=== PATIENT | male | born 1940 ===

== ENCOUNTER 2017-08-21 14:57 | Inpatient (IN) | payer MEDICARE, OTHER ==
[~2017-08-21] VITALS: Ht 188 cm; Wt 104.3 kg
[2017-08-21 16:44] VITALS: BP 123/77
[2017-08-21] MEDS ORDERED: ASPI81TA31 PO (16:44)
[2017-08-21] MEDS ORDERED: CARV25TA2 PO (16:44)
[2017-08-21] MEDS ORDERED: MINO2.5T PO (16:44)
[2017-08-21] MEDS ORDERED: ATOR80TA PO (16:44)
[2017-08-21] MEDS ORDERED: DOCU100C36 PO (16:44)
[2017-08-21] MEDS ORDERED: NIFE60TA69 PO (16:44)
[2017-08-21] MEDS ORDERED: NIFE30TA89 PO (16:44)
[2017-08-21] MEDS ORDERED: VALS80TA2 PO (16:44)
[2017-08-21] MEDS ORDERED: Z GUARD REMEDY PASTE 57 GM TUBE TOP PRN (17:00)
[2017-08-21] MEDS ORDERED: ACETAMINOPHEN 325 MG TABLET PO PRN (19:30)
[2017-08-21] MEDS: ATORVASTATIN 40 MG TABLET PO SCH (21:30)
[2017-08-21] MEDS ORDERED: LORAZEPAM 0.5 MG TABLET PO PRN (21:30)
[2017-08-21 22:07] VITALS: BP 130/82
[2017-08-21] MEDS: OXYCODONE/APAP 5-325 MG TABLET PO PRN (22:15)
[2017-08-22] MEDS: OXYCODONE/APAP 5-325 MG TABLET PO PRN ×2 (02:23→21:41)
[2017-08-22 05:58] VITALS: BP 120/79
[2017-08-22 06:21] LABS: BASOPHILS % (AUTO) 0.5 % (0.0-2.0); EOSINOPHILS # (AUTO) 0.1 K/uL (0.0-0.7); EOSINOPHILS % (AUTO) 2.7 % (0.0-7.0); HEMATOCRIT 42.1 % (36.7-47.1); HEMOGLOBIN 14.1 g/dL (12.5-16.3); LYMPHOCYTES # (AUTO) 0.9 K/uL (20.0-40.0); LYMPHOCYTES % (AUTO) 16.9 % (20.5-51.5); MEAN CORPUSCULAR HEMOGLOBIN 28.9 uug (23.8-33.4); MEAN CORPUSCULAR HGB CONC 33 g/dL (32.5-36.3); MEAN CORPUSCULAR VOLUME 86.5 fL (73.0-96.2); MONOCYTES # (AUTO) 0.8 K/uL (2.0-10.0); MONOCYTES % (AUTO) 14.4 % (0.0-11.0); NEUTROPHILS # (AUTO) 3.4 K/uL (1.8-8.9); NEUTROPHILS % (AUTO) 65.5 % (38.5-71.5); PLATELET COUNT (AUTO) 193 K/uL (152-348); RED BLOOD CELL COUNT(AUTO) 4.87 MIL/uL (4.06-5.63); WHITE BLOOD COUNT (AUTO) 5.2 K/uL (3.6-10.2)
[2017-08-22 06:41] LABS: CARBON DIOXIDE 27 mmol/L (21-32); CHLORIDE 105 mmol/L (98-107); CHOLESTEROL 192 mg/dL (<200); GLUCOSE 98 mg/dL (74-106); HDL CHOLESTEROL 42 mg/dL (40-60); MAGNESIUM 2.2 mg/dL (1.8-2.4); PHOSPHOROUS 3.1 mg/dL (2.5-4.9); POTASSIUM 3.6 mmol/L (3.5-5.1); TRIGLYCERIDES 70 MG/DL (30-150); UREA NITROGEN, BLOOD 23 mg/dL (7-18)
[2017-08-22] MEDS: CARVEDILOL 25 MG TABLET PO SCH ×2 (08:13→17:33)
[2017-08-22] MEDS: DOCUSATE SODIUM 100 MG CAPSULE PO SCH (08:44)
[2017-08-22] MEDS: ASPIRIN 81 MG TAB.CHEW PO SCH (08:44)
[2017-08-22] MEDS ORDERED: Medication Not On Formulary EA (Atorvastatin Calcium (Lipitor) 80 MG) PO SCH (09:00)
[2017-08-22] MEDS: VALSARTAN 80 MG TABLET PO SCH (09:40)
[2017-08-22] MEDS: MINOXIDIL 2.5 MG TABLET PO SCH ×2 (09:40→16:52)
[2017-08-22] MEDS: NIFEdipine XL 30 MG TABSR PO SCH (09:41)
[2017-08-22 19:30] VITALS: BP 114/69
[2017-08-22] MEDS: ATORVASTATIN 40 MG TABLET PO SCH (21:05)
[2017-08-22] MEDS: LORAZEPAM 1 MG TABLET PO PRN (21:08)
[2017-08-23 08:00] VITALS: BP 132/91
[2017-08-23] MEDS: VALSARTAN 80 MG TABLET PO SCH (08:49)
[2017-08-23] MEDS: CARVEDILOL 25 MG TABLET PO SCH ×2 (08:49→17:27)
[2017-08-23] MEDS: NIFEdipine XL 30 MG TABSR PO SCH (08:49)
[2017-08-23] MEDS: DOCUSATE SODIUM 100 MG CAPSULE PO SCH (08:49)
[2017-08-23] MEDS: MINOXIDIL 2.5 MG TABLET PO SCH ×2 (08:50→17:27)
[2017-08-23] MEDS: ASPIRIN 81 MG TAB.CHEW PO SCH (08:50)
[2017-08-23] MEDS: LORAZEPAM 1 MG TABLET PO PRN ×2 (08:55→15:01)
[2017-08-23 17:00] VITALS: BP 130/85
[2017-08-23 20:01] VITALS: BP 112/67
[2017-08-23] MEDS ORDERED: DEXAMETHASONE SOD PHOSPHATE 10 MG INJ IV STA (20:34)
[2017-08-23] MEDS ORDERED: DEXAMETHASONE SOD PHOSPHATE 4 MG INJ IV SCH (20:45)
[2017-08-23] MEDS: ATORVASTATIN 40 MG TABLET PO SCH (20:57)
[2017-08-24] MEDS ORDERED: PANT40TA2 PO (14:58)
[2017-08-24] MEDS ORDERED: PROC25SU3 RC (14:58)
[2017-08-24] MEDS ORDERED: ONDA4TAB5 PO (14:58)
[2017-08-24] MEDS ORDERED: BLOO-697 IN (15:01)
[2017-08-24] MEDS ORDERED: NORM2DIS4 IVF (15:01)
[2017-08-24] MEDS ORDERED: ONDANSETRON HCL 4 MG TABLET PO PRN (15:45)
[2017-08-24] MEDS: BLOOD SUGAR DIAGNOSTIC 1 EACH STRIP VI SCH ×2 (16:53→20:49)
[2017-08-24] MEDS ORDERED: ACETAMINOPHEN 325 MG TABLET PO PRN (17:15)
[2017-08-24] MEDS ORDERED: Z GUARD REMEDY PASTE 57 GM TUBE TOP PRN (17:45)
[2017-08-24 17:56] VITALS: BP 126/77
[2017-08-24] MEDS: CARVEDILOL 25 MG TABLET PO SCH (17:57)
[2017-08-24] MEDS: MINOXIDIL 2.5 MG TABLET PO SCH (17:57)
[2017-08-24 19:37] VITALS: BP 111/73
[2017-08-24] MEDS: ATORVASTATIN 40 MG TABLET PO SCH (20:43)
[2017-08-24] MEDS: OXYCODONE/APAP 5-325 MG TABLET PO PRN (20:44)
[2017-08-24] MEDS ORDERED: ZOLPIDEM 5 MG TABLET PO ONE (23:15)
[2017-08-25 05:12] VITALS: BP 127/68
[2017-08-25] MEDS: BLOOD SUGAR DIAGNOSTIC 1 EACH STRIP VI SCH ×4 (06:31→20:49)
[2017-08-25 08:00] VITALS: BP 127/58
[2017-08-25] MEDS: CARVEDILOL 25 MG TABLET PO SCH ×2 (08:45→17:42)
[2017-08-25] MEDS: VALSARTAN 80 MG TABLET PO SCH (08:46)
[2017-08-25] MEDS: ASPIRIN 81 MG TAB.CHEW PO SCH (08:46)
[2017-08-25] MEDS: PANTOPRAZOLE SODIUM 40 MG TABLET.DR PO SCH (08:46)
[2017-08-25] MEDS: NIFEdipine XL 30 MG TABSR PO SCH (08:46)
[2017-08-25] MEDS: MINOXIDIL 2.5 MG TABLET PO SCH ×2 (08:47→17:40)
[2017-08-25] MEDS: DOCUSATE SODIUM 100 MG CAPSULE PO SCH (08:47)
[2017-08-25 16:40] VITALS: BP 114/67
[2017-08-25] MEDS ORDERED: BISACODYL 5 MG TABLET.DR PO PRN (17:30)
[2017-08-25 19:22] VITALS: BP 104/54
[2017-08-25] MEDS: ATORVASTATIN 40 MG TABLET PO SCH (20:39)
[2017-08-25] MEDS: OXYCODONE/APAP 5-325 MG TABLET PO PRN (20:42)
[2017-08-26] MEDS: OXYCODONE/APAP 5-325 MG TABLET PO PRN ×2 (02:32→21:53)
[2017-08-26] MEDS: BLOOD SUGAR DIAGNOSTIC 1 EACH STRIP VI SCH ×4 (06:29→21:52)
[2017-08-26 06:53] VITALS: BP 132/87
[2017-08-26 08:00] VITALS: BP 121/78
[2017-08-26] MEDS: MINOXIDIL 2.5 MG TABLET PO SCH ×2 (09:37→17:51)
[2017-08-26] MEDS: CARVEDILOL 25 MG TABLET PO SCH ×2 (09:37→17:52)
[2017-08-26] MEDS: PANTOPRAZOLE SODIUM 40 MG TABLET.DR PO SCH (09:37)
[2017-08-26] MEDS: VALSARTAN 80 MG TABLET PO SCH (09:37)
[2017-08-26] MEDS: DOCUSATE SODIUM 100 MG CAPSULE PO SCH (09:37)
[2017-08-26] MEDS: ASPIRIN 81 MG TAB.CHEW PO SCH (09:37)
[2017-08-26] MEDS: NIFEdipine XL 30 MG TABSR PO SCH (09:38)
[2017-08-26] MEDS ORDERED: MAGNESIUM HYDROXIDE 30 ML LIQUID UDC PO PRN (11:45)
[2017-08-26] MEDS ORDERED: BISACODYL 10 MG SUPP.RECT RC ONE (13:15)
[2017-08-26] MEDS ORDERED: LACTULOSE 20 G/30 ML LIQUID UDC PO ONE ×2 (13:15→13:45)
[2017-08-26 16:00] VITALS: BP 100/65
[2017-08-26 19:30] VITALS: BP 118/72
[2017-08-26] MEDS: ATORVASTATIN 40 MG TABLET PO SCH (21:52)
[2017-08-26] MEDS: ZOLPIDEM 5 MG TABLET PO PRN (21:53)
[2017-08-27 04:00] VITALS: BP 131/79
[2017-08-27] MEDS: BLOOD SUGAR DIAGNOSTIC 1 EACH STRIP VI SCH ×4 (06:34→21:49)
[2017-08-27 08:00] VITALS: BP 126/80
[2017-08-27] MEDS: NIFEdipine XL 30 MG TABSR PO SCH (10:19)
[2017-08-27] MEDS: MINOXIDIL 2.5 MG TABLET PO SCH ×2 (10:20→17:00)
[2017-08-27] MEDS: DOCUSATE SODIUM 100 MG CAPSULE PO SCH (10:20)
[2017-08-27] MEDS: ASPIRIN 81 MG TAB.CHEW PO SCH (10:20)
[2017-08-27] MEDS: CARVEDILOL 25 MG TABLET PO SCH ×2 (10:20→17:06)
[2017-08-27] MEDS: VALSARTAN 80 MG TABLET PO SCH (10:20)
[2017-08-27] MEDS: PANTOPRAZOLE SODIUM 40 MG TABLET.DR PO SCH (10:21)
[2017-08-27 16:00] VITALS: BP 107/66
[2017-08-27 19:53] VITALS: BP 118/77
[2017-08-27] MEDS: TRAZODONE 50 MG TABLET PO SCH (21:48)
[2017-08-27] MEDS: OXYCODONE/APAP 5-325 MG TABLET PO PRN (21:59)
[2017-08-27] MEDS: ZOLPIDEM 5 MG TABLET PO PRN (22:00)
[2017-08-27] MEDS ORDERED: ATORVASTATIN 40 MG TABLET ONE (22:20)
[2017-08-27] MEDS: ATORVASTATIN 40 MG TABLET PO SCH (22:21)
[2017-08-28 05:00] VITALS: BP 120/82
[2017-08-28] MEDS: BLOOD SUGAR DIAGNOSTIC 1 EACH STRIP VI SCH ×4 (06:39→21:00)
[2017-08-28 08:00] VITALS: BP 127/87
[2017-08-28] MEDS: DOCUSATE SODIUM 100 MG CAPSULE PO SCH (08:33)
[2017-08-28] MEDS: PANTOPRAZOLE SODIUM 40 MG TABLET.DR PO SCH (08:33)
[2017-08-28] MEDS: ASPIRIN 81 MG TAB.CHEW PO SCH (08:33)
[2017-08-28] MEDS: NIFEdipine XL 30 MG TABSR PO SCH (08:33)
[2017-08-28] MEDS: VALSARTAN 80 MG TABLET PO SCH (08:34)
[2017-08-28] MEDS: CARVEDILOL 25 MG TABLET PO SCH ×2 (08:34→18:00)
[2017-08-28] MEDS: MINOXIDIL 2.5 MG TABLET PO SCH ×2 (08:34→16:37)
[2017-08-28 15:32] VITALS: BP 107/65
[2017-08-28] MEDS: TRAZODONE 50 MG TABLET PO SCH (20:34)
[2017-08-28] MEDS: ZOLPIDEM 5 MG TABLET PO PRN (20:34)
[2017-08-28 20:48] VITALS: BP 124/74
[2017-08-28] MEDS: ATORVASTATIN 40 MG TABLET PO SCH (21:00)
[2017-08-28] MEDS: OXYCODONE/APAP 5-325 MG TABLET PO PRN (22:54)
[2017-08-29 06:22] VITALS: BP 126/84
[2017-08-29 07:30] VITALS: BP 133/81
[2017-08-29] MEDS: BLOOD SUGAR DIAGNOSTIC 1 EACH STRIP VI SCH (07:30)
[2017-08-29] MEDS: CARVEDILOL 25 MG TABLET PO SCH (08:00)
[2017-08-29] MEDS: DOCUSATE SODIUM 100 MG CAPSULE PO SCH (08:48)
[2017-08-29] MEDS: PANTOPRAZOLE SODIUM 40 MG TABLET.DR PO SCH (08:49)
[2017-08-29] MEDS: ASPIRIN 81 MG TAB.CHEW PO SCH (08:53)
[2017-08-29] MEDS: VALSARTAN 80 MG TABLET PO SCH (08:56)
[2017-08-29 09:00] VITALS: BP 133/81
[2017-08-29] MEDS: MINOXIDIL 2.5 MG TABLET PO SCH (09:00)
[2017-08-29] MEDS: NIFEdipine XL 30 MG TABSR PO SCH (09:00)
== END 2017-08-29 10:15 | disposition left against medical advice (07) | DRG 57 ==
LOC: UNDODISIN 08-23 21:45
PROVIDERS: ADMIT Physical Medicine & Rehabilitation Pain Medicine; ATTEND Physical Medicine & Rehabilitation Pain Medicine
DX: I69.234 Monoplegia of upper limb following other nontraumatic intracranial hemorrhage affecting left non-dominant side (principal); I50.32 Chronic diastolic (congestive) heart failure; E03.9 Hypothyroidism, unspecified; H57.11 Ocular pain, right eye; E78.5 Hyperlipidemia, unspecified; F41.1 Generalized anxiety disorder; I11.0 Hypertensive heart disease with heart failure; I25.10 Atherosclerotic heart disease of native coronary artery without angina pectoris; I25.2 Old myocardial infarction; I48.91 Unspecified atrial fibrillation; J44.9 Chronic obstructive pulmonary disease, unspecified; R45.87 Impulsiveness; G47.00 Insomnia, unspecified
CPT/HCPCS: 36415; 70030-TC; 70450; 83735; 84100; 85025; 92507; 92523; 92526; 92610; 97110; 97112; 97116; 97530; 97535; A4217; A4663

== ENCOUNTER 2017-08-23 21:54 | Inpatient (IN) | payer MEDICARE, OTHER ==
[~2017-08-23] VITALS: Ht 188 cm; Wt 106.6 kg
[2017-08-23 21:50] VITALS: BP 134/104
[~2017-08-23 21:54] MED LIST: ASPI81TA31 PO; ATOR80TA PO; CARV25TA2 PO; DOCU100C36 PO; MINO2.5T PO; NIFE30TA89 PO; VALS80TA2 PO
[2017-08-23 22:00] VITALS: BP 103/62
[2017-08-23] MEDS ORDERED: PROCHLORPERAZINE MALEATE 25 MG SUPP.RECT RC PRN (22:00)
[2017-08-23] MEDS ORDERED: ONDANSETRON 4 MG/2 ML VIAL IV PRN (22:00)
[2017-08-23 22:30] VITALS: BP 124/57
[2017-08-23 23:00] VITALS: BP 127/62
[2017-08-23 23:03] LABS: BASOPHILS % (AUTO) 0.7 % (0.0-2.0); EOSINOPHILS # (AUTO) 0.1 K/uL (0.0-0.7); EOSINOPHILS % (AUTO) 1.7 % (0.0-7.0); HEMATOCRIT 44.1 % (36.7-47.1); HEMOGLOBIN 14.9 g/dL (12.5-16.3); LYMPHOCYTES # (AUTO) 0.8 K/uL (20.0-40.0); LYMPHOCYTES % (AUTO) 13.3 % (20.5-51.5); MEAN CORPUSCULAR HEMOGLOBIN 29.3 uug (23.8-33.4); MEAN CORPUSCULAR HGB CONC 34 g/dL (32.5-36.3); MEAN CORPUSCULAR VOLUME 86.7 fL (73.0-96.2); MONOCYTES # (AUTO) 0.7 K/uL (2.0-10.0); MONOCYTES % (AUTO) 11.7 % (0.0-11.0); NEUTROPHILS # (AUTO) 4.3 K/uL (1.8-8.9); NEUTROPHILS % (AUTO) 72.6 % (38.5-71.5); PLATELET COUNT (AUTO) 208 K/uL (152-348); RED BLOOD CELL COUNT(AUTO) 5.09 MIL/uL (4.06-5.63)
[2017-08-23] MEDS ORDERED: NORMAL SALINE FLUSH 10 ML DISP.SYRIN IV PRN (23:15)
[2017-08-23 23:30] VITALS: BP 131/63
[2017-08-23 23:36] LABS: CARBON DIOXIDE 27 mmol/L (21-32); CHLORIDE 104 mmol/L (98-107); CREATININE 1.2 mg/dL (0.6-1.3); GLUCOSE 98 mg/dL (74-106); MAGNESIUM 2.6 mg/dL (1.8-2.4); PHOSPHOROUS 3.6 mg/dL (2.5-4.9); POTASSIUM 3.4 mmol/L (3.5-5.1); UREA NITROGEN, BLOOD 28 mg/dL (7-18)
[2017-08-24] VITALS (13 sets, daily range): BP systolic 109–145; BP diastolic 63–92
[2017-08-24] MEDS ORDERED: BLOOD SUGAR DIAGNOSTIC 1 EACH STRIP VI SCH
[2017-08-24] MEDS ORDERED: ZOLPIDEM 5 MG TABLET PO ONE (00:45)
[2017-08-24] MEDS ORDERED: NORMAL SALINE FLUSH 10 ML DISP.SYRIN IV SCH (06:00)
[2017-08-24] MEDS: BLOOD SUGAR DIAGNOSTIC 1 EACH STRIP VI SCH ×2 (06:18→12:03)
[2017-08-24 06:33] LABS: BASOPHILS # (AUTO) 0.1 K/uL (0.0-8.0); BASOPHILS % (AUTO) 0.8 % (0.0-2.0); EOSINOPHILS # (AUTO) 0.2 K/uL (0.0-0.7); EOSINOPHILS % (AUTO) 2.1 % (0.0-7.0); HEMATOCRIT 44.1 % (36.7-47.1); HEMOGLOBIN 14.8 g/dL (12.5-16.3); LYMPHOCYTES # (AUTO) 1.2 K/uL (20.0-40.0); LYMPHOCYTES % (AUTO) 16.4 % (20.5-51.5); MEAN CORPUSCULAR HEMOGLOBIN 29.1 uug (23.8-33.4); MEAN CORPUSCULAR HGB CONC 34 g/dL (32.5-36.3); MEAN CORPUSCULAR VOLUME 86.3 fL (73.0-96.2); MONOCYTES # (AUTO) 0.9 K/uL (2.0-10.0); MONOCYTES % (AUTO) 12.7 % (0.0-11.0); PLATELET COUNT (AUTO) 238 K/uL (152-348); RED BLOOD CELL COUNT(AUTO) 5.11 MIL/uL (4.06-5.63); WHITE BLOOD COUNT (AUTO) 7.3 K/uL (3.6-10.2)
[2017-08-24 06:42] LABS: CARBON DIOXIDE 23 mmol/L (21-32); CHLORIDE 105 mmol/L (98-107); GLUCOSE 110 mg/dL (74-106); POTASSIUM 3.7 mmol/L (3.5-5.1); UREA NITROGEN, BLOOD 27 mg/dL (7-18)
[2017-08-24 06:44] LABS: *BLOOD, URINE NEGATIVE (NEGATIVE); *CLARITY,URINE CLEAR (CLEAR); *COLOR,URINE YELLOW (YELLOW); *KETONES,URINE NEGATIVE (NEGATIVE); *PROTEIN,URINE TRACE (NEGATIVE); *UROBILINOGEN,URINE 0.2 E.U./dl (NORMAL); LEUKOCYTE ESTERASE ,URINE NEGATIVE (NEGATIVE); NITRITE, URINE NEGATIVE (NEGATIVE); PH,URINE 5.5 (5.0-8.0); UGLUCOSE NEGATIVE (NEGATIVE)
[2017-08-24 06:50] LABS: *BILIRUBIN,URIN 1+ (NEGATIVE)
[2017-08-24 06:54] LABS: BACTERIA,URINE FEW /HPF (NONE SEEN); RBC,URINE 0-3 /HPF (0-3); SQUAMOUS EPITHELIAL CELL,UR FEW /HPF (NONE SEEN); WBC,URINE 0-3 /HPF (0-3)
[2017-08-24] MEDS ORDERED: CARVEDILOL 25 MG TABLET PO SCH (08:00)
[2017-08-24] MEDS ORDERED: DOCUSATE SODIUM 100 MG CAPSULE PO SCH ×2 (09:00)
[2017-08-24] MEDS ORDERED: NIFEdipine XL 30 MG TABSR PO SCH (09:00)
[2017-08-24] MEDS ORDERED: MINOXIDIL 2.5 MG TABLET PO SCH (09:00)
[2017-08-24] MEDS ORDERED: Medication Not On Formulary EA (Atorvastatin Calcium (Lipitor) 80 MG) PO SCH (09:00)
[2017-08-24] MEDS ORDERED: PANTOPRAZOLE SODIUM 40 MG VIAL IV SCH (09:00)
[2017-08-24] MEDS ORDERED: VALSARTAN 80 MG TABLET PO SCH (09:00)
[2017-08-24] MEDS ORDERED: PANT40TA2 PO (14:58)
[2017-08-24] MEDS ORDERED: ONDA4TAB5 PO (14:58)
[2017-08-24] MEDS ORDERED: PROC25SU3 RC (14:58)
[2017-08-24] MEDS ORDERED: NORM2DIS4 IVF (15:01)
[2017-08-24] MEDS ORDERED: BLOO-697 IN (15:01)
[2017-08-24] MEDS ORDERED: ATORVASTATIN 40 MG TABLET PO SCH (21:00)
== END 2017-08-24 13:30 | DRG 80 ==
LOC: CCU 21:54
PROVIDERS: ADMIT Internal Medicine; ATTEND Registered Nurse
DX: G93.6 Cerebral edema (principal); I63.8 Other cerebral infarction; I61.8 Other nontraumatic intracerebral hemorrhage; G81.94 Hemiplegia, unspecified affecting left nondominant side; I50.32 Chronic diastolic (congestive) heart failure; R29.703 NIHSS score 3; I48.2 Chronic atrial fibrillation; Z79.01 Long term (current) use of anticoagulants; I11.0 Hypertensive heart disease with heart failure; I25.2 Old myocardial infarction; J44.9 Chronic obstructive pulmonary disease, unspecified; I25.10 Atherosclerotic heart disease of native coronary artery without angina pectoris; E87.6 Hypokalemia; E78.5 Hyperlipidemia, unspecified; E03.9 Hypothyroidism, unspecified; Z82.49 Family history of ischemic heart disease and other diseases of the circulatory system
CPT/HCPCS: 36415; 83735; 84100; 85025; 85730; 92610; 97116; C9113; J3490